=== PATIENT | female | born 1980 | race Caucasian/White ===

== ENCOUNTER 2017-04-07 19:51 | Emergency (ER) | payer BC, OTHER ==
[2017-04-07 20:10] VITALS: RESP 20; TEMP 96.4
[2017-04-07] MEDS ORDERED: CEPHALEXIN 250 MG/5 ML BOTTLE PO ONE (20:25)
[2017-04-07] MEDS ORDERED: CEPHALEXIN 250 MG/5 ML BOTTLE ONE (20:29)
[2017-04-07 20:32] VITALS: BP 119/82; PULSE 79; O2SAT 99
== END 2017-04-07 20:37 | disposition home or self-care (01) | DRG 607 ==
LOC: ED 19:51
DX: L73.9 Follicular disorder, unspecified (principal); L03.211 Cellulitis of face
CPT/HCPCS: 99282; 99283